=== PATIENT | male | born 1990 | race Caucasian/White ===

== ENCOUNTER 2017-01-26 05:33 | Emergency (ER) | payer BC ==
[~2017-01-26] VITALS: Ht 177.8 cm; Wt 81.7 kg
[2017-01-26 06:50] VITALS: BP 118/72
== END 2017-01-26 06:46 | disposition home or self-care (01) ==
LOC: ER 05:33
DX: T16.1XXA Foreign body in right ear, initial encounter (principal); X58.XXXA Exposure to other specified factors, initial encounter; Y93.89 Activity, other specified; Y92.89 Other specified places as the place of occurrence of the external cause; Y99.8 Other external cause status